=== PATIENT | female | born 1955 | race Native Hawaiian/Other Pacific Islander ===

== ENCOUNTER 2019-01-17 02:02 | Emergency (ER) | payer OTHER ==
[~2019-01-17] VITALS: Ht 160 cm; Wt 45.4 kg
[2019-01-17 03:20] LABS: PLATELET COUNT 150 K/uL (152-353)
[2019-01-17 04:35] VITALS: BP 183/85; TEMP 97.9
== END 2019-01-17 04:35 | disposition home or self-care (01) ==
LOC: ED 02:02
PROVIDERS: Emergency Medicine
DX: K29.00 Acute gastritis without bleeding (principal); R11.2 Nausea with vomiting, unspecified
CPT/HCPCS: 80053; 81000; 85027; 96360; 96375; 99284; J2405; J7120

== ENCOUNTER 2019-09-12 23:22 | Emergency (ER) | payer OTHER ==
[~2019-09-12] VITALS: Ht 160 cm; Wt 45.4 kg
[2019-09-13] LABS: PLATELET COUNT 187 K/uL (152-353)
[2019-09-13 00:10] LABS: POTASSIUM 3.9 mmol/L (3.6-5.2)
[2019-09-13 00:44] VITALS: BP 177/74; TEMP 98.1
== END 2019-09-13 00:44 | disposition home or self-care (01) ==
LOC: ED 23:22
PROVIDERS: Hospitalist
DX: E86.0 Dehydration (principal)
CPT/HCPCS: 36415; 80053; 81000; 85027; 96360; 99284

== ENCOUNTER 2020-01-12 20:38 | Emergency (ER) | payer OTHER ==
[~2020-01-12] VITALS: Ht 160 cm; Wt 43.1 kg
[2020-01-12 20:45] VITALS: BP 188/89; TEMP 99.1
[2020-01-12 22:07] LABS: PLATELET COUNT 172 K/uL (152-353)
[2020-01-12 22:14] LABS: POTASSIUM 3.3 mmol/L (3.6-5.2)
== END 2020-01-12 23:37 | disposition home or self-care (01) ==
LOC: ED 20:38
PROVIDERS: Family Medicine
DX: R11.0 Nausea (principal); E87.6 Hypokalemia
CPT/HCPCS: 36415; 80053; 81000; 82150; 83690; 85027; 99283

== ENCOUNTER 2020-01-19 11:06 | Outpatient (CLI) | payer OTHER | END 2020-01-19 19:41 | disposition home or self-care (01) | LOC: US 11:06 | PROVIDERS: ATTEND Nurse Practitioner Family | DX: R10.84 Generalized abdominal pain (principal) ==

== ENCOUNTER 2021-05-18 11:10 | Emergency (ER) | payer OTHER ==
[~2021-05-18] VITALS: Ht 160 cm; Wt 43.1 kg
[2021-05-18 11:15] VITALS: TEMP 98.4
[2021-05-18 12:19] VITALS: BP 159/65
== END 2021-05-18 12:23 | disposition home or self-care (01) ==
LOC: ED 11:10
DX: I10 Essential (primary) hypertension (principal); L03.115 Cellulitis of right lower limb; T63.391A Toxic effect of venom of other spider, accidental (unintentional), initial encounter; Y93.89 Activity, other specified; Y92.89 Other specified places as the place of occurrence of the external cause
CPT/HCPCS: 96372; 99283; J0696; J1885; J2930

== ENCOUNTER 2023-02-01 11:51 | Outpatient (CLI) | payer OTHER ==
[2023-02-01 12:12] LABS: PLATELET COUNT 167 K/uL (152-353)
[2023-02-01 14:13] LABS: POTASSIUM 4.6 mmol/L (3.6-5.2)
== END 2023-02-01 19:14 | disposition home or self-care (01) ==
LOC: LABW 11:51
PROVIDERS: ATTEND Nurse Practitioner
DX: I10 Essential (primary) hypertension (principal); Z13.21 Encounter for screening for nutritional disorder; R10.13 Epigastric pain; E55.9 Vitamin D deficiency, unspecified
CPT/HCPCS: 36415; 80053; 82306; 82607; 84439; 84443; 85027; 85652; 86140; 86677